=== PATIENT | male | born 1975 | race Caucasian/White ===

== ENCOUNTER 2018-03-24 17:39 | Emergency (ER) | payer MEDICAID, OTHER ==
[2018-03-24 18:04] VITALS: BP 135/82
--- NOTE | 2018-03-24 18:30 | ED ---
Headache - HPI Summary HPI Summary: 42-year-old male presents with one half week history of posterior headaches associated with gait instability, dizziness, double vision and now repetitive vomiting through the day today. He is experienced posterior headaches for approximately one year but for the last 10 days or so these have been different. He is a heavy smoker and heavy drinker. He reports having 4 beers today. He has family history for brain aneurysm and stroke in his aunt. He denies any history of hypertension, diabetes or heart disease. His headache is mild at present but his dizziness and gait instability are persistent. - History Of Current Complaint Chief Complaint: UCHeadache Stated Complaint: HEADACHE, AND VOMITING Time Seen by Provider: 03/24/18 18:11 Hx Obtained From: Patient, Family/Molded Goods Spot Picker - Allergies/Home Medications Allergies/Adverse Reactions: Allergies Allergy/AdvReac Type Severity Reaction Status Date / Time No Known Allergies Allergy Verified 03/24/18 18:04 Home Medications: Home Medications NK [No Home Medications Reported] 03/24/18 [History Confirmed 03/24/18] PMH/Surg Hx/FS Hx/Imm Hx Previously Healthy: Yes - Surgical History Surgery Procedure, Year, and Place: arthroscopic surgery in right knee Infectious Disease History: No Infectious Disease History: Denies: Traveled Outside the [place] in Last 30 Days - Family History Known Family History: Positive: Other - stroke, brain aneurysm in aunt - Social History Alcohol Use: Daily Alcohol Amount: 5 days a week Substance Use Type: Reports: None Smoking Status (MU): Heavy Every Day Tobacco Smoker Review of Systems Negative: Fever Positive: Diplopia ENT: Negative Cardiovascular: Negative Respiratory: Negative Positive: Vomiting, Nausea Genitourinary: Negative Musculoskeletal: Negative Skin: Negative Neurological: Other - gait instability, dizziness Positive: Headache, Weakness. Negative: Slurred Speech All Other Systems Reviewed And Are Negative: Yes Physical Exam Triage Information Reviewed: Yes Vital Signs On Initial Exam: Initial Vitals Temp Pulse Resp BP Pulse Ox 97.4 F 91 16 135/82 99 03/24/18 17:58 03/24/18 17:58 03/24/18 17:58 03/24/18 17:58 03/24/18 17:58 Vital Signs Reviewed: Yes Appearance: Positive: Well-Appearing, No Pain Distress, Well-Nourished - Smells of alcohol Skin: Positive: Warm, Dry Head/Face: Positive: Normal Head/Face Inspection, Temporal Artery Tenderness. Negative: Cephalohematoma Eyes: Positive: EOMI ENT: Positive: Normal ENT inspection Neck: Positive: Supple, Nontender Respiratory/Lung Sounds: Positive: Clear to Auscultation Cardiovascular: Positive: RRR Abdomen Description: Positive: Nontender, Soft Musculoskeletal: Positive: Normal, Strength/ROM Intact Neurological: Positive: Other - Mild tremor. Negative Romberg. Mild ataxia with gait. NIH stroke score 0 Psychiatric: Positive: Normal AVPU Assessment: Alert Diagnostics - Vital Signs Vital Signs Temp Pulse Resp BP Pulse Ox 03/24/18 17:58 97.4 F 91 16 135/82 99 - Laboratory Lab Statement: Any lab studies that have been ordered have been reviewed, and results considered in the medical decision making process. Headache Course/Dx - Course Course Of Treatment: Nurse's notes reviewed. Concern here is for posterior infarct or cerebellar injury. There may also be metabolic abnormality associated with his heavy drinking. He does not appear intoxicated and is well within his faculties. It was suggested that he go to the ER for imaging and rule out of posterior infarct, cerebellar hemorrhage etc. I spoke with Dr. Arrieta in the ER who is expecting him. He will be driven by his . - Diagnoses Differential Diagnosis/HQI/PQRI: CVA, TIA, Epidural Hematoma, Subdural Hematoma , Migraine, Subarachnoid Hemorrhage, Tension Headache Provider Diagnoses: Chronic headache, Ataxia, Diplopia, Acute vomiting, Alcoholism - Physician Notifications Discussed Care Of Patient With: Tonio Arrieta - ER physician expecting in the ER Discharge - Sign-Out/Discharge Documenting (check all that apply): Patient Departure All imaging exams completed and their final reports reviewed: No Studies - Discharge Plan Condition: Fair Disposition: HOME-RECOMMEND TO ED Patient Education Materials: Acute Headache (ED), Diplopia (ED) Referrals: Randa Sky MD [Primary Care Provider] - Additional Instructions: Dr. Arrieta in the ER is expecting you. You will be evaluated for posterior circulation stroke symptoms your headaches, ataxia and vomiting. Go directly to the ER. Do not drive. - Billing Disposition and Condition Condition: FAIR Disposition: Home-Recommend to ED - Attestation Statements Document Initiated by Scribe: Josette
== END 2018-03-24 18:30 | disposition home health service (06) ==
LOC: UCEAST 17:39
DX: R51 Headache (principal); R27.0 Ataxia, unspecified; H53.2 Diplopia; R11.10 Vomiting, unspecified; R42 Dizziness and giddiness; R26.89 Other abnormalities of gait and mobility; F10.20 Alcohol dependence, uncomplicated; F17.200 Nicotine dependence, unspecified, uncomplicated
CPT/HCPCS: 99211; G0463

== ENCOUNTER 2018-03-24 18:49 | Emergency (ER) | payer OTHER ==
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
[2018-03-24 20:35] LABS: ABS Basophils 0.1 10^3/ul (0-0.2); ABS Eosinophils 0 10^3/ul (0-0.6); ABS Monocytes 0.5 10^3/ul (0-0.8); ABS Neutrophils 12.9 10^3/ul (1.5-7.7); ABS Nucleated RBC 0 10^3/ul; Eosinophil % 0.1 %; Hematocrit 47 % (42-52); Hemoglobin 16.1 g/dl (14.0-18.0); Mean Corpuscular HGB Conc 35 g/dl (31-36); Mean Corpuscular Hemoglobin 34 pg (27-31); Mean Corpuscular Volume 99 fL (80-94); Mean Platelet Volume 9.1 fL (7.4-10.4); Nucleated Red Blood Cells % 0; Platelet Count 179 10^3/ul (150-450); Red Blood Count 4.73 10^6/ul (4.00-5.40); Red Cell Distribution Width 14 % (10.5-15); White Blood Count 14.4 10^3/ul (3.5-10.8)
[2018-03-24 20:46] LABS: INR 0.94 (0.77-1.02)
[2018-03-24 20:53] LABS: Albumin 4.6 g/dL (3.2-5.2); Albumin/Globulin Ratio 1.4 (1-3); BUN/Creatinine Ratio 14.1 (8-20); Calcium 9.1 mg/dL (8.6-10.3); EGFR African American 120.2 (>60); EGFR Non-African American 99.3 (>60); Globulin 3.2 g/dL (2-4); Potassium 4.2 mmol/L (3.5-5.0); Total Bilirubin 0.5 mg/dL (0.2-1.0); Total Protein 7.8 g/dL (6.4-8.9)
[2018-03-24] MEDS ORDERED: Gadoteridol* (CONTRAST) 279.3 MG/ML 10 ML IV ONE (22:25)
[2018-03-24] MEDS ORDERED: LORazepam INJ* 2 MG/ML 1 ML VIAL IV PUSH ONE (23:38)
[2018-03-25 00:11] VITALS: BP 121/78
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
== END 2018-03-25 00:11 | disposition short-term general hospital (02) ==
LOC: ED 18:49
DX: I63.9 Cerebral infarction, unspecified (principal); K46.9 Unspecified abdominal hernia without obstruction or gangrene; D49.6 Neoplasm of unspecified behavior of brain; R42 Dizziness and giddiness; R11.2 Nausea with vomiting, unspecified; F17.210 Nicotine dependence, cigarettes, uncomplicated; R51 Headache
CPT/HCPCS: 36415; 70030; 70450; 70553; 80053; 80320; 83605; 84484; 85025; 85610; 93005; 96374; 99283; A9579; G0480